=== PATIENT | male | born 1965 | race Caucasian/White ===

== ENCOUNTER 2021-10-19 08:36 | Outpatient (REF) | payer MEDICAID, SELFPAY ==
[2021-10-19 10:09] LABS: MANUAL DIFF FLAG NO
[2021-10-19 10:34] LABS: Basophils Percent Auto 0.5 % (0-2); Eosinophils Absolute Auto 0.3 X10*3/uL (0.0-0.4); Eosinophils Percent Auto 3.9 % (0-4); Hematocrit 45.1 % (42.0-52.0); Hemoglobin 14.7 g/dl (14.0-18.0); Imm Gran Abs Auto 0.02 X10*3/uL (0.00-0.03); Imm Gran Pct Auto 0.3 % (0.0-0.4); Lymphocytes Absolute Auto 2.3 X10*3/uL (1.2-4.9); Lymphocytes Percent Auto 28.6 % (20-40); Mean Corpuscular HGB Conc 32.6 g/dl (31.0-36.0); Mean Corpuscular Hemoglobin 30.1 pg (27.0-33.0); Mean Corpuscular Volume 92.2 fL (80.0-98.0); Mean Platelet Volume 10.7 fL (9.4-12.4); Monocytes Absolute Auto 0.5 X10*3/uL (0.1-1.2); Neutrophils Absolute Auto 4.8 x10*3/uL (2.0-8.3); Neutrophils Percent Auto 60.7 % (45-73); Platelet Count 171 X10*3/uL (160-400); Red Blood Count 4.89 X10*6/uL (4.60-5.80); Red Cell Distribution Width 13.8 % (11.0-16.0)
[2021-10-19 11:08] LABS: Anion Gap 13 (12-20); Blood Urea Nitrogen 26 mg/dL (9-16); Carbon Dioxide 34 mmol/L (22-29); Chloride 99 mmol/L (96-108); Estimated Glomerular Filt Rate 41; Glucose Random 115 mg/dL (60-115); Potassium 4.2 mmol/L (3.3-5.1); Sodium 142 mmol/L (135-145)
[2021-10-19 11:20] LABS: Erythrocyte Sedimentation Rate 23 MM/HR (0-15)
[2021-10-21 22:01] LABS: Anti Nuclear Antibody Screen NEGATIVE (NEGATIVE)
[2021-10-25 07:06] LABS: Angiotensin Converting Enzyme 17 U/L (9-67)
[2021-10-25 22:47] LABS: Asperg fumigatus Precip Abs NEGATIVE (NEGATIVE); Micropoly faeni Abs NEGATIVE (NEGATIVE); Pigeon serum Abs NEGATIVE (NEGATIVE); Saccharo pora viridis Abs NEGATIVE (NEGATIVE); Thermo candidus Abs NEGATIVE (NEGATIVE); Thermoa vulgaris #1 NEGATIVE (NEGATIVE)
== END 2021-10-19 08:37 | disposition home or self-care (01) ==
LOC: HO.LAB 08:36
PROVIDERS: Visit Provider Hospitalist
DX: R91.8 Other nonspecific abnormal finding of lung field (principal); J45.909 Unspecified asthma, uncomplicated; G47.33 Obstructive sleep apnea (adult) (pediatric); Z99.89 Dependence on other enabling machines and devices
CPT/HCPCS: 36415; 80048; 82164; 82785; 85025; 85652; 86003; 86038; 86039; 86331; 86606; 86609; 99202

== ENCOUNTER → 2021-11-27 08:23 | Outpatient (BNVA) | payer MEDICAID, SELFPAY | PROVIDERS: Visit Provider Hospitalist | DX: Z23 Encounter for immunization (principal); J67.8 Hypersensitivity pneumonitis due to other organic dusts; J45.909 Unspecified asthma, uncomplicated; R91.8 Other nonspecific abnormal finding of lung field; G47.33 Obstructive sleep apnea (adult) (pediatric); G47.00 Insomnia, unspecified | CPT/HCPCS: 90686; 99212 ==

== ENCOUNTER → 2022-03-04 10:17 | Outpatient (BNVA) | payer MEDICAID, SELFPAY | PROVIDERS: Visit Provider Hospitalist | DX: G47.33 Obstructive sleep apnea (adult) (pediatric) (principal); J67.8 Hypersensitivity pneumonitis due to other organic dusts; G47.00 Insomnia, unspecified; J44.9 Chronic obstructive pulmonary disease, unspecified; J45.909 Unspecified asthma, uncomplicated; R91.8 Other nonspecific abnormal finding of lung field | CPT/HCPCS: 99212 ==

== ENCOUNTER 2022-12-02 09:46 | Outpatient (REF) | payer MEDICAID, SELFPAY ==
--- NOTE | 2022-12-02 14:03 | PFT_ITS ---
INDICATION: Dyspnea. SPIROMETRY: FEV1 to FVC 85% with an FEV1 3.18 L, which is 87% predicted and FVC of 3.74 L, which is 78% predicted. Bronchodilators were not used due to the fact the patient had just used his inhaler prior to the test. Maximum voluntary ventilation is 92% predicted. LUNGS VOLUMES: Total lung capacity 78% predicted. EXPIRATORY RESIDUAL VOLUME: 55% predicted. DIFFUSION CAPACITY: DLCO 77% predicted. COMPARISON: None. INTERPRETATION: No obstructive, no restrictive ventilatory defect identified. No significant response to bronchodilator is noted. The lung volumes still demonstrate a restrictive ventilatory defect consistent with mild restrictive lung disease. In addition to that, there was a decrease in the expiratory residual volume. Both are likely secondary to an elevated BMI, although occult interstitial lung conditions could not be ruled out. Diffusion capacity is also mildly decreased, although it does correct to normal when correcting for the alveolar volume. Clinical correlation warranted. MD GEORGI Larios/SYED / [id number]
== END 2022-12-02 09:47 | disposition home or self-care (01) ==
LOC: HO.RESP 09:46
PROVIDERS: Visit Provider Hospitalist
DX: J45.909 Unspecified asthma, uncomplicated (principal)
CPT/HCPCS: 94010; 94727; 94729

== ENCOUNTER 2023-04-08 09:55 | Outpatient (AMB) | payer MEDICAID, SELFPAY ==
--- NOTE | 2023-04-08 09:59 | A.OFFVIS_ITS ---
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 Apparently he has been describing worsening shortness of breath. He did undergo pulmonary function studies back in May 2021 that I personally reviewed with him. It appears that he has a mild restrictive ventilatory defect in addition to mild diffusion impairment. This is significant change from her previous PFTs and is likely that is the results of his COVID infection that he had back in August 2020. At that time he was admitted to the hospital with COVID pneumonia. Ultimately after that his respiratory symptoms have gotten worse. Per the recommendations of previous specialists he stopped his inhalers in view of a suspicion that he did not need them. But, after 3 days of stopping the inhalers his respiratory symptoms worsen. He is now doing much better on the inhalers. Currently he is taking Advair and Spiriva and also a rescue inhaler. He does complaint of dyspnea on exertion. During the visit we did go for 6 minute walk test. He has dyspnea score 6/10. He did desaturate down to 91%. Again, this may be the result of his underlying post COVID syndrome. The patient did not qualify for oxygen at this time. He does have a CPAP. He does use it every night. He does wake up drowsy. His Bell score still elevated 11/24. The patient still. Has a hard time sleeping. He may he may benefit from a sleep aid. The patient will undergo blood work today. And he will bring his CPAP during the next visit. I will send a sleep a in the meantime to see if he has improvements in his daytime drowsiness. 11/27/2021 the patient is here for a pulmonary follow-up visit. Patient overall is doing about the same. Continues use the Advair. He was not able to get the Trelegy inhaler. We had to do a PA. We did call the insurance company and they will approve Breo and Incruse. Therefore I did send to the pharmacy can start them. In the meantime he continues uses CPAP machine. He did bring it in. Sometimes he feels like he is not getting enough pressure. His current settings are CPAP of 12 cm. I did switch over to an APAP to see if he gets additional support. He is also having hard time sleeping. Only getting about 4 hours a night. This can also be affecting his daytime drowsiness. His AHI was actually normal around 1.2 events per hour. He also reports limb movements likely a component of periodic limb movements. Will treated with gabapentin with hopes of improving his sleep and also decreasing the movements. 03/04/2022 the patient is here for a pulmonary follow-up visit. Overall the patient has been doing well. He does continue on his respiratory inhaler which appears to be more effective. He has not had to use his rescue inhaler. He is also retired from the [employer] so he has not been exposed to so much lower specially with a Cordero's lungs. He is tolerating the CPAP better. The APAP therapy has been more effective in beneficial. He does use it for more than 4 hours a night. Actually all night. And he does feel comfortable with current mask. However, he still struggling with sleep. The gabapentin was not as helpful with sleep. Therefore he will hold off on the gabapentin and start trazodone. I am hoping that 100 mg of trazodone will be enough. If however he continues having some daytime drowsiness he can always continue the trazodone and had the 300 mg of gabapentin along with. If he has any issues he can call the office for an earlier evaluation. Otherwise will follow-up in a year's time. 04/08/2023 the patient is here for pulmonary follow-up visit. Overall the patient is doing well. Using his respiratory inhalers as prescribed. He is going to the gym on a daily basis. He is exercising losing weight. He continues to have sleep apnea. Continues to use CPAP every night. CPAP therapy has been affecting beneficial when he does use it for more than 4 hours a night. He still struggling with sleep however. We switched him over to trazodone many still not able to get to sleep. Therefore he will go ahead and start gabapentin along with trazodone to see if this is more effective. If after 2-4 weeks he has no better he can always call so we can then address it further. Possibly by increasing the medication or switching to a different agent. He did undergo pulmonary function studies sometime in November and I did review with him. Appears that he has a mild restrictive process. Will go ahead and request a repeat x- ray. [facility] Medical History (Updated 04/08/23 @ 10:14 by Kade Knutson MD) Asthma Bakers' asthma Chronic restrictive lung disease Insomnia RAPHAEL on CPAP Pulmonary nodules Social History (Updated 10/19/21 @ 09:07 by Geri Jaimes Mason) Patient Tobacco Use Status: Never used Tobacco Review of Systems Const Reports difficulty sleeping, Denies night sweats and Reports weight loss ENT Denies change in voice, Denies lip swelling, Denies mouth pain, Reports nasal congestion, Reports nasal discharge and Denies tongue swelling Card Denies chest pain and Reports dyspnea on exertion Resp Reports cough and Reports dyspnea on exertion GI Denies abdominal pain Musc Denies no additional complaints Neuro Denies Neuro-related abnormal movements Psych Denies no additional complaints Justin/Lymph Denies easy bleeding and Denies lymphadenopathy Aller/Immun Denies lip swelling and Denies tongue swelling Physical Exam Vital Signs: Last Vital Signs Pulse 78 04/08/23 10:00 BP 118/60 04/08/23 10:00 Pulse Ox 94 04/08/23 10:00 Oxygen Delivery Method Room Air 04/08/23 10:00 BMI result Body Mass Index 36.2 Const General: alert Neck Neck: Yes normal visual inspection, Yes full ROM and Yes no lymphadenopathy Chest Chest palpation & inspection: normal inspection of the chest Resp Auscultation: no wheezes and diminished lung sounds Cardio Rate: regular rate Rhythm: regular rhythm Heart sounds: S1 normal heart sound present and S2 normal heart sound present GI Palpation (GI): Soft to palpation and nontender Auscultation: normal bowel sounds Skin General skin exam: rashes and/or lesions noted Assessment & Plan Assessment & Plan (1) Pulmonary nodules: Code(s): R91.8 - Other nonspecific abnormal finding of lung field (2) Asthma: Code(s): J45.909 - Unspecified asthma, uncomplicated (3) RAPHAEL on CPAP: Code(s): G47.33 - Obstructive sleep apnea (adult) (pediatric); Z99.89 - Dependence on other enabling machines and devices (4) Bakers' asthma: Code(s): J67.8 - Hypersensitivity pneumonitis due to other organic dusts (5) Insomnia: Code(s): G47.00 - Insomnia, unspecified (6) Chronic restrictive lung disease: Code(s): J98.4 - Other disorders of lung Plan continue Breo and Incruse MISAEL as needed Continue APAP continue Trazadone 100mg qHS restart gabapentin 300 mg qhs CXR F/U 8-12 months Orders: Orders XR chest 2V Today J98.4 - Other disorders of lung Medications: New gabapentin 300 mg PO BEDTIME 30 days 30 caps 10RF Coding Level of Care Code Est Pt Level 4 (08345) Diagnoses Pulmonary nodules R91.8 Asthma J45.909 RAPHAEL on CPAP G47.33; Z99.89 Bakers' asthma J67.8 Insomnia G47.00 Chronic restrictive lung disease J98.4 Time Spent (min) 19
[2023-04-08 10:00] VITALS: BP 118/60; PULSE 78; O2SAT 94; BMI 36.2
== END 2023-04-08 10:54 | disposition home or self-care (01) ==
LOC: HO.HPS 09:55
PROVIDERS: Visit Provider Hospitalist
DX: J45.909 Unspecified asthma, uncomplicated (principal); G47.33 Obstructive sleep apnea (adult) (pediatric); Z99.89 Dependence on other enabling machines and devices; R91.8 Other nonspecific abnormal finding of lung field; J67.8 Hypersensitivity pneumonitis due to other organic dusts; G47.00 Insomnia, unspecified; J98.4 Other disorders of lung
CPT/HCPCS: 99214

== ENCOUNTER → 2023-04-08 09:55 | Outpatient (BNVA) | payer MEDICAID, SELFPAY | PROVIDERS: Visit Provider Hospitalist | DX: R91.8 Other nonspecific abnormal finding of lung field (principal); J45.909 Unspecified asthma, uncomplicated; J67.8 Hypersensitivity pneumonitis due to other organic dusts; J98.4 Other disorders of lung; G47.00 Insomnia, unspecified; G47.33 Obstructive sleep apnea (adult) (pediatric); Z99.89 Dependence on other enabling machines and devices | CPT/HCPCS: 99212 ==